=== PATIENT | male | born 1960 | race Caucasian/White ===

== ENCOUNTER 2016-11-04 10:38 | Inpatient (IN) | payer BC ==
[2016-11-03 14:08] LABS: HEMOGLOBIN 16.5 g/dL (13.7-18.0)
[2016-11-03 14:12] LABS: PATH.CAST-FLAG NOT PRESENT; SPERM-FLAG NOT PRESENT; SRC-FLAG NOT PRESENT; XTAL-FLAG NOT PRESENT; YLC-FLAG NOT PRESENT
[2016-11-03 14:20] LABS: BLOOD UREA NITROGEN 9 mg/dL (7-18)
[2016-11-03 14:24] LABS: ASPARTATE AMINO TRANSFERASE 16 U/L (15-37)
[~2016-11-04] VITALS: Ht 170.2 cm; Wt 72.0 kg
[~2016-11-04 10:38] MED LIST: HYDR-3138 PO; losartan PO
[2016-11-04] MEDS ORDERED: LIDOCAINE 1%, 2ML ONE (11:20)
[2016-11-04] MEDS ORDERED: LACTATED RINGERS 1,000 ML IV SCH (11:23)
[2016-11-04] MEDS ORDERED: CEPH-376 PO (11:23)
[2016-11-04] MEDS ORDERED: LOSARTAN PO (11:23)
[2016-11-04] MEDS ORDERED: OXYC1TAB8 PO (11:23)
[2016-11-04 11:24] VITALS: BP 131/88
[2016-11-04] MEDS ORDERED: LIDOCAINE 1%, 2ML SQ PRN (11:30)
[2016-11-04] MEDS ORDERED: BUPIVACAINE/PF-EPI 0.5% 1:200K ONE (13:48)
[2016-11-04] MEDS ORDERED: BACITRACIN OINT 500U/GM, 15 GM ONE (13:48)
[2016-11-04] MEDS ORDERED: THROMBIN 5,000 UNIT VIAL TP ONE (13:48)
[2016-11-04] MEDS ORDERED: REMIFENTANIL 2 MG ONE (14:01)
[2016-11-04] MEDS ORDERED: REMIFENTANIL 1 MG ONE (14:01)
[2016-11-04] MEDS ORDERED: KETAMINE 10 MG/ML, 20ML ONE (14:09)
[2016-11-04] MEDS ORDERED: MIDAZOLAM 1 MG/ML, 2ML ONE (14:09)
[2016-11-04] MEDS ORDERED: FENTANYL PF 250 MCG/5ML ONE (14:09)
[2016-11-04] MEDS ORDERED: PHENYLEPHRINE 10 MG/ML ONE (15:19)
[2016-11-04] MEDS ORDERED: SUCCINYLCHOLINE 20 MG/ML, 10ML ONE (15:19)
[2016-11-04] MEDS ORDERED: PROPOFOL 10 MG/ML, 20ML ONE ×2 (15:19)
[2016-11-04] MEDS ORDERED: CEFAZOLIN 1,000 MG ONE (15:19)
[2016-11-04] MEDS ORDERED: ROCURONIUM 10 MG/ML ONE (15:19)
[2016-11-04] MEDS ORDERED: ONDANSETRON 2MG/ML, 2ML ONE (15:19)
[2016-11-04] MEDS ORDERED: DEXAMETHASONE 4 MG/ML, 1ML ONE (15:19)
[2016-11-04] MEDS ORDERED: PROPOFOL 10 MG/ML, 50ML ONE (15:19)
[2016-11-04] MEDS ORDERED: PHARMACY MAY ADJ FOR RENAL FX MC PRN (15:30)
[2016-11-04] MEDS ORDERED: ONDANSETRON 2MG/ML, 2ML IVPush PRN (15:30)
[2016-11-04] MEDS ORDERED: morphine SULFATE 10 MG/ML, 1ML IVPush PRN (15:30)
[2016-11-04] MEDS ORDERED: MAGNESIUM HYDROXIDE 8%, 30ML UDC PO PRN (15:30)
[2016-11-04] MEDS ORDERED: BISACODYL 10 MG SUPP PR PRN (15:30)
[2016-11-04] MEDS ORDERED: DIPHENHYDRAMINE 50 MG/ML, 1ML IVPush PRN (15:30)
[2016-11-04] MEDS ORDERED: SENNA/DOCUSATE TABLET PO PRN (15:30)
[2016-11-04] MEDS ORDERED: LABETALOL 5MG/ML, 20ML IVPush PRN (15:30)
[2016-11-04] MEDS ORDERED: PROMETHAZINE 25 MG/ML, 1ML IV PRN (16:30)
[2016-11-04] MEDS ORDERED: MEPERIDINE/PF 25MG/0.5ML IVPush PRN (16:30)
[2016-11-04] MEDS ORDERED: OXYcodone 5 MG/5 ML ORAL.SOL UDC PO PRN (16:30)
[2016-11-04] MEDS ORDERED: ALBUTEROL SULFATE 2.5 MG/3 ML NPPB PRN (16:30)
[2016-11-04] MEDS ORDERED: ACETAMINOPHEN 325 MG TABLET PO PRN (16:30)
[2016-11-04] MEDS: HYDROmorphone 1 MG/ML, 1ML IV PRN ×4 (17:30→18:15)
[2016-11-04] MEDS ORDERED: OXYcodone 5 MG/5 ML ORAL.SOL UDC ONE (17:36)
[2016-11-04] MEDS ORDERED: HYDROmorphone 2 MG/ML, 1ML ONE (17:36)
[2016-11-04] MEDS ORDERED: MEPERIDINE/PF 25MG/0.5ML ONE (17:41)
[2016-11-04] MEDS ORDERED: FENTANYL PF 100 MCG/2ML ONE (18:13)
[2016-11-04] MEDS: FENTANYL PF 100 MCG/2ML IV PRN ×2 (18:16→18:30)
[2016-11-04] MEDS: METHOCARBAMOL 750 MG TABLET PO PRN (19:46)
[2016-11-04] MEDS: OXYcodone/APAP 5/325MG TABLET PO PRN ×2 (19:46→23:38)
[2016-11-04 20:01] VITALS: BP 143/91
[2016-11-04] MEDS: D5%-0.9% NACL+KCL 20MEQ 1,000 ML IV SCH (20:42)
[2016-11-04] MEDS: CEFAZOLIN PMX 1GM/50ML 50 ML IVPB SCH (23:38)
[2016-11-05 00:02] VITALS: BP 118/77
[2016-11-05] MEDS: D5%-0.9% NACL+KCL 20MEQ 1,000 ML IV SCH (01:30)
[2016-11-05 03:41] VITALS: BP 121/80
[2016-11-05] MEDS: METHOCARBAMOL 750 MG TABLET PO PRN (03:59)
[2016-11-05] MEDS: OXYcodone/APAP 5/325MG TABLET PO PRN ×2 (04:00→08:27)
[2016-11-05 05:54] LABS: HEMOGLOBIN 14.3 g/dL (13.7-18.0)
[2016-11-05] MEDS: CEFAZOLIN PMX 1GM/50ML 50 ML IVPB SCH (07:30)
[2016-11-05] MEDS ORDERED: CEPH500T PO (07:38)
[2016-11-05] MEDS ORDERED: OXYC-302 PO (07:39)
[2016-11-05 07:45] VITALS: BP 125/81
[2016-11-05 10:35] VITALS: BP 135/88
== END 2016-11-05 10:53 | disposition home or self-care (01) | DRG 460 ==
LOC: ORIP 10:38 → 4NOR 19:19 → DCLOUNGE 11-05 10:42
PROVIDERS: ADMIT Orthopaedic Surgery Orthopaedic Surgery of the Spine; ATTEND Orthopaedic Surgery Orthopaedic Surgery of the Spine
PROC: 0T9B70Z Drainage of Bladder with Drainage Device, Via Natural or Artificial Opening (ICD-10-PCS; 2016-11-03)
PROC: 01NB0ZZ Release Lumbar Nerve, Open Approach (ICD-10-PCS; 2016-11-04)
PROC: 0SG3071 Fusion of Lumbosacral Joint with Autologous Tissue Substitute, Posterior Approach, Posterior Column, Open Approach (ICD-10-PCS; principal; 2016-11-04 12:30)
DX: M43.17 Spondylolisthesis, lumbosacral region (principal); S32.059A Unspecified fracture of fifth lumbar vertebra, initial encounter for closed fracture; M48.07 Spinal stenosis, lumbosacral region; M47.27 Other spondylosis with radiculopathy, lumbosacral region; I10 Essential (primary) hypertension; F17.210 Nicotine dependence, cigarettes, uncomplicated; Z71.6 Tobacco abuse counseling; Z79.899 Other long term (current) drug therapy
CPT/HCPCS: 36415; 71020; 72100; 80053; 81001; 85025; 93005; C1713; J0690; J1100; J1170; J2175; J2250; J2405; J2704; J3010; J3490; C1762; J0330; J2270; J2370; J3480; J7120

== ENCOUNTER 2018-04-13 05:37 | Inpatient (IN) | payer BC ==
[~2018-04-13] VITALS: Ht 170.2 cm; Wt 64.0 kg
[~2018-04-13 05:37] MED LIST changes: +CEPH-376 PO; +CEPH500T PO; -HYDR-3138 PO; +HYDR-3237 PO; +LOSARTAN PO; +OXYC-302 PO; +OXYC1TAB8 PO
[2018-04-13] MEDS ORDERED: LACTATED RINGERS 1,000 ML IV SCH (06:08)
[2018-04-13] MEDS ORDERED: THROMBIN 5,000 UNIT VIAL TP ONE (06:18)
[2018-04-13] MEDS ORDERED: BACITRACIN 50,000 UNIT ONE (06:18)
[2018-04-13] MEDS ORDERED: VANCOMYCIN 1,000 MG ONE (06:18)
[2018-04-13] MEDS ORDERED: BUPIVACAINE/PF-EPI 0.5% 1:200K ONE (06:18)
[2018-04-13] MEDS ORDERED: BUPIVACAINE/PF 0.5% ONE (06:18)
[2018-04-13] MEDS ORDERED: FENTANYL PF 250 MCG/5ML ONE (06:48)
[2018-04-13] MEDS ORDERED: GABAPENTIN 300 MG CAPSULE PO ONE (07:00)
[2018-04-13] MEDS ORDERED: ACETAMINOPHEN 500 MG TABLET PO ONE (07:00)
[2018-04-13] MEDS ORDERED: DEXAMETHASONE 4 MG/ML, 1ML ONE (07:57)
[2018-04-13] MEDS ORDERED: SUCCINYLCHOLINE 20 MG/ML, 10ML ONE (07:57)
[2018-04-13] MEDS ORDERED: NEOSTIGMINE 1 MG/ML, 10ML ONE (07:57)
[2018-04-13] MEDS ORDERED: PROPOFOL 10 MG/ML, 20ML ONE (07:57)
[2018-04-13] MEDS ORDERED: CEFAZOLIN 1,000 MG ONE (07:57)
[2018-04-13] MEDS ORDERED: ONDANSETRON 2MG/ML, 2ML ONE (07:57)
[2018-04-13] MEDS ORDERED: GLYCOPYRROLATE 0.2MG/1ML, 5ML ONE (07:57)
[2018-04-13] MEDS ORDERED: ROCURONIUM 10MG/ML,5ML ONE (07:57)
[2018-04-13] MEDS ORDERED: HYDROmorphone 1 MG/ML, 1ML IV PRN (08:00)
[2018-04-13] MEDS ORDERED: MEPERIDINE/PF 25MG/0.5ML IVPush PRN (08:00)
[2018-04-13] MEDS ORDERED: OXYcodone 5 MG/5 ML ORAL.SOL UDC PO PRN (08:00)
[2018-04-13] MEDS ORDERED: LABETALOL 5MG/ML, 20ML IV PRN (08:00)
[2018-04-13] MEDS ORDERED: PROCHLORPERAZINE 5 MG/ML, 2ML IV PRN (08:00)
[2018-04-13] MEDS ORDERED: PROMETHAZINE 25 MG/ML, 1ML IV PRN (08:00)
[2018-04-13] MEDS ORDERED: FENTANYL PF 100 MCG/2ML ONE (08:26)
[2018-04-13] MEDS ORDERED: OXYcodone 5 MG/5 ML ORAL.SOL UDC ONE (08:26)
[2018-04-13] MEDS: FENTANYL PF 100 MCG/2ML IV PRN ×2 (08:29→08:36)
[2018-04-13] MEDS ORDERED: MAGNESIUM HYDROXIDE 8%, 30ML UDC PO PRN (08:30)
[2018-04-13] MEDS ORDERED: DIPHENHYDRAMINE 50 MG CAPSULE PO PRN (08:30)
[2018-04-13] MEDS ORDERED: LABETALOL 5MG/ML, 20ML IVPush PRN (08:30)
[2018-04-13] MEDS ORDERED: HYDROcodone/APAP 5/325 TABLET PO PRN (08:30)
[2018-04-13] MEDS ORDERED: PROMETHAZINE 25 MG/ML, 1ML IM PRN (08:30)
[2018-04-13] MEDS ORDERED: DIPHENHYDRAMINE 50 MG/ML, 1ML IVPush PRN (08:30)
[2018-04-13] MEDS ORDERED: ONDANSETRON 2MG/ML, 2ML IVPush PRN (08:30)
[2018-04-13] MEDS ORDERED: PHARMACY MAY ADJ FOR RENAL FX MC PRN (08:30)
[2018-04-13] MEDS ORDERED: ZOLPIDEM 5MG TABLET PO PRN (08:30)
[2018-04-13] MEDS ORDERED: SENNA/DOCUSATE TABLET PO PRN (08:30)
[2018-04-13] MEDS ORDERED: CEFAZOLIN PMX 1GM/50ML 50 ML IVPB SCH (08:30)
[2018-04-13] MEDS ORDERED: BISACODYL 10 MG SUPP PR PRN (08:30)
[2018-04-13] MEDS ORDERED: MEPERIDINE/PF 50 MG/ML ONE (08:36)
[2018-04-13] MEDS ORDERED: HYDROmorphone 2 MG/ML, 1ML ONE (08:37)
[2018-04-13] MEDS: CEPHALEXIN PO SCH ×3 (11:00→21:00)
[2018-04-13] MEDS: OXYcodone/APAP 5/325MG TABLET PO PRN ×3 (12:37→23:33)
[2018-04-13 14:16] VITALS: BP 109/71
[2018-04-13] MEDS: CEFAZOLIN PMX 1GM/50ML 50 ML IVPB SCH ×2 (15:39→23:28)
[2018-04-13 20:18] VITALS: BP 97/55
[2018-04-14] VITALS: BP 99/59
[2018-04-14 04:13] VITALS: BP 103/60
[2018-04-14] MEDS: morphine SULFATE 10 MG/ML, 1ML IVPush PRN ×2 (04:21→11:12)
[2018-04-14] MEDS: CEPHALEXIN PO SCH ×4 (05:43→21:00)
[2018-04-14 05:55] LABS: BASOPHILS # (AUTO) 0.02 x10^3/uL (0-0.1); BASOPHILS % (AUTO) 0 % (0-1); EOSINOPHILS # (AUTO) 0.01 x10^3/uL (0-0.4); EOSINOPHILS % (AUTO) 0 % (1-7); LYMPHOCYTES % (AUTO) 17 % (22-44); MD NO; MEAN CORPUSCULAR HEMOGLOBIN 31.1 pg (27.5-34.5); MEAN CORPUSCULAR HGB CONC 33.9 g/dL (33.2-36.2); MEAN CORPUSCULAR VOLUME 91.8 fL (81-97); MEAN PLATELET VOLUME 9.4 fL (7.4-10.4); MONOCYTES # (AUTO) 0.78 x10^3/uL (0.2-0.8); MONOCYTES % (AUTO) 7 % (2-9); NEUTROPHILS # (AUTO) 8.43 x10^3/uL (1.8-6.8); NEUTROPHILS % (AUTO) 76 % (42-75); PLATELET COUNT 230 x10^3/uL (130-400); RED BLOOD COUNT 4.65 x10^6/uL (4.38-5.82); RED CELL DISTRIBUTION WIDTH 14.1 % (9.4-14.8)
[2018-04-14 06:13] LABS: ANION GAP 7 mmol/L (5-15); CALCIUM 8.8 mg/dL (8.5-10.1); CHLORIDE 108 mmol/L (98-107)
[2018-04-14 06:16] LABS: CREATININE 0.85 mg/dL (0.7-1.3)
[2018-04-14] MEDS ORDERED: HEPARIN 1,000 UNITS/ML, 30ML ONE (06:20)
[2018-04-14] MEDS ORDERED: THROMBIN 5,000 UNIT VIAL TP ONE ×2 (06:20→07:35)
[2018-04-14] MEDS ORDERED: BACITRACIN 50,000 UNIT ONE ×2 (06:20→07:35)
[2018-04-14] MEDS ORDERED: MIDAZOLAM 1 MG/ML, 2ML ONE (06:50)
[2018-04-14] MEDS ORDERED: FENTANYL PF 250 MCG/5ML ONE ×2 (06:51→08:02)
[2018-04-14] MEDS ORDERED: PROPOFOL 50 ML ONE ×2 (06:51)
[2018-04-14] MEDS ORDERED: ONDANSETRON ODT 8 MG PO PRN (07:00)
[2018-04-14] MEDS ORDERED: ONDANSETRON 2MG/ML, 2ML IV PRN (07:00)
[2018-04-14] MEDS ORDERED: ACETAMINOPHEN 325 MG TABLET PO PRN (07:00)
[2018-04-14] MEDS ORDERED: PROMETHAZINE 25 MG/ML, 1ML IV PRN (07:00)
[2018-04-14] MEDS ORDERED: FENTANYL PF 100 MCG/2ML IV PRN (07:00)
[2018-04-14] MEDS ORDERED: LABETALOL 5MG/ML, 20ML IV PRN (07:00)
[2018-04-14] MEDS ORDERED: OXYcodone 5 MG/5 ML ORAL.SOL UDC PO PRN (07:00)
[2018-04-14] MEDS ORDERED: MORPHINE SULFATE 4 MG/ML, 1ML IVPush PRN (07:00)
[2018-04-14] MEDS ORDERED: LABETALOL 5MG/ML, 20ML ONE (07:05)
[2018-04-14] MEDS ORDERED: VANCOMYCIN 1,000 MG ONE (07:35)
[2018-04-14] MEDS ORDERED: BUPIVACAINE/PF-EPI 0.5% 1:200K ONE (07:35)
[2018-04-14] MEDS ORDERED: MEPERIDINE/PF 50 MG/ML ONE (09:40)
[2018-04-14] MEDS ORDERED: OXYcodone 5 MG/5 ML ORAL.SOL UDC ONE (10:10)
[2018-04-14] MEDS ORDERED: HYDROmorphone 2 MG/ML, 1ML ONE (10:10)
[2018-04-14] MEDS: HYDROmorphone 1 MG/ML, 1ML IV PRN ×4 (10:14→10:34)
[2018-04-14] MEDS ORDERED: MEPERIDINE/PF 25MG/0.5ML IVPush PRN (10:30)
[2018-04-14] MEDS: CYCLOBENZAPRINE 10 MG TABLET PO PRN ×2 (12:37→21:29)
[2018-04-14 14:07] VITALS: BP 127/76
[2018-04-14] MEDS: OXYcodone/APAP 5/325MG TABLET PO PRN ×3 (14:09→22:46)
[2018-04-14 20:17] VITALS: BP 105/62
[2018-04-14] MEDS: FAMOTIDINE 20 MG/2 ML IVPush SCH (21:29)
[2018-04-15] VITALS: BP 110/61
[2018-04-15] MEDS: OXYcodone/APAP 5/325MG TABLET PO PRN ×2 (02:54→07:30)
[2018-04-15] MEDS: morphine SULFATE 10 MG/ML, 1ML IVPush PRN (02:58)
[2018-04-15 05:56] LABS: BASOPHILS # (AUTO) 0.01 x10^3/uL (0-0.1); BASOPHILS % (AUTO) 0 % (0-1); EOSINOPHILS # (AUTO) 0.01 x10^3/uL (0-0.4); EOSINOPHILS % (AUTO) 0 % (1-7); LYMPHOCYTES # (AUTO) 2.07 x10^3/uL (1-3.4); LYMPHOCYTES % (AUTO) 22 % (22-44); MD NO; MEAN CORPUSCULAR HEMOGLOBIN 31.2 pg (27.5-34.5); MEAN CORPUSCULAR HGB CONC 34.1 g/dL (33.2-36.2); MEAN CORPUSCULAR VOLUME 91.4 fL (81-97); MEAN PLATELET VOLUME 9.5 fL (7.4-10.4); MONOCYTES # (AUTO) 0.73 x10^3/uL (0.2-0.8); MONOCYTES % (AUTO) 8 % (2-9); NEUTROPHILS # (AUTO) 6.52 x10^3/uL (1.8-6.8); NEUTROPHILS % (AUTO) 70 % (42-75); PLATELET COUNT 197 x10^3/uL (130-400); RED BLOOD COUNT 3.89 x10^6/uL (4.38-5.82); RED CELL DISTRIBUTION WIDTH 14.2 % (9.4-14.8)
[2018-04-15] MEDS: CEPHALEXIN PO SCH (06:00)
[2018-04-15 06:07] LABS: ANION GAP 5 mmol/L (5-15); CHLORIDE 108 mmol/L (98-107); CREATININE 0.84 mg/dL (0.7-1.3)
[2018-04-15] MEDS: FAMOTIDINE 20 MG/2 ML IVPush SCH (07:29)
[2018-04-15 07:36] VITALS: BP 147/69
[2018-04-15] MEDS ORDERED: OXYC-307 PO (08:49)
[2018-04-15] MEDS ORDERED: CYCL5TAB PO (08:49)
[2018-04-15] MEDS ORDERED: ENOXAPARIN 40 MG/0.4 ML SQ SCH (09:00)
== END 2018-04-15 10:40 | disposition home or self-care (01) | DRG 455 ==
LOC: ORIP 05:37 → 4NOR 10:23 → DCLOUNGE 04-15 10:15
PROVIDERS: ADMIT Neurological Surgery; ATTEND Neurological Surgery
PROC: 0SP304Z Removal of Internal Fixation Device from Lumbosacral Joint, Open Approach (ICD-10-PCS; principal; 2018-04-13 07:00)
PROC: 0SG30A0 Fusion of Lumbosacral Joint with Interbody Fusion Device, Anterior Approach, Anterior Column, Open Approach (ICD-10-PCS; 2018-04-14)
PROC: 0SG3071 Fusion of Lumbosacral Joint with Autologous Tissue Substitute, Posterior Approach, Posterior Column, Open Approach (ICD-10-PCS; 2018-04-14)
PROC: 0SB40ZZ Excision of Lumbosacral Disc, Open Approach (ICD-10-PCS; 2018-04-14)
PROC: 4A11X4G Monitoring of Peripheral Nervous Electrical Activity, Intraoperative, External Approach (ICD-10-PCS; 2018-04-14)
DX: M43.17 Spondylolisthesis, lumbosacral region (principal); M51.16 Intervertebral disc disorders with radiculopathy, lumbar region; M51.37 Other intervertebral disc degeneration, lumbosacral region; G89.29 Other chronic pain; F17.200 Nicotine dependence, unspecified, uncomplicated; Z72.89 Other problems related to lifestyle; I10 Essential (primary) hypertension
CPT/HCPCS: 36415; 72100; 74018; J3490; S0028; 72131; 80048; 85025; C1713; C1729; J0690; J1100; J1170; J1644; J1650; J2175; J2250; J2405; J2704; J2710; J3010; J3370; C1762; J0330; J2270; J7120